=== PATIENT | male | born 2000 | race Caucasian/White ===

== ENCOUNTER 2019-11-22 15:43 | Emergency (ER) | payer MEDICAID ==
[~2019-11-22] VITALS: Ht 182.9 cm; Wt 100.7 kg
[2019-11-22 16:03] VITALS: Ht 182.9 cm; Wt 100.7 kg
[2019-11-22 18:13] LABS: BASOPHIL % 0.2 % (0-2); PLATELET COUNT 258 x10^3mcL (130-400); RED CELL DISTRIBUTION WIDTH 13.1 % (11.5-14.5)
[2019-11-22 18:28] LABS: CALCIUM 9.4 mg/dL (8.5-10.1); CHLORIDE SERUM 101 mmol/L (98-107); CREATININE SERUM 1.1 mg/dL (0.7-1.3); GFR1 > 60 mL/min; GLUCOSE SERUM 95 mg/dL (74-106); POTASSIUM SERUM 3.6 mmol/L (3.5-5.1); SODIUM SERUM 140 mmol/L (136-145)
[2019-11-22 18:36] LABS: ALBUMIN 4.5 g/dL (3.4-5.0); ALKALINE PHOSPHATASE 84 U/L (46-116); ALT/SGPT 29 U/L (16-63); AST/SGOT 21 U/L (15-37); BILIRUBIN TOTAL 0.9 mg/dL (0.20-1.00); LACTIC DEHYDROGENASE (LDH) 200 U/L (100-190)
[2019-11-22 18:39] LABS: TOTAL PROTEIN, SERUM 8.7 g/dL (6.4-8.2)
[2019-11-22 19:59] VITALS: BP 142/92
== END 2019-11-22 19:59 | disposition home or self-care (01) ==
LOC: ED 15:43
PROVIDERS: Specialist
DX: F41.9 Anxiety disorder, unspecified (principal)
CPT/HCPCS: 83880; 87804; U0003-CS